=== PATIENT | female | born 1980 ===

== ENCOUNTER 2021-10-29 13:51 | Inpatient (IN) ==
[2021-10-29] MEDS ORDERED: SODIUM CHLORIDE 0.9% 250 ML IV PRN (15:41)
[2021-10-29] MEDS ORDERED: ceFAZolin 2000MG 2,000 MG/15 ML SYR IV SCH (16:00)
--- NOTE | 2021-10-29 16:03 | History & Physical Report ---
Date of Service October 29, 2021 Assessment & Plan (1) Previous delivery affecting , antepartum: (2) Dichorionic diamniotic twin : (3) Intrauterine growth restriction affecting antepartum care of mother in third trimester: Plan: 41 y/o at 36 2/7 wga w/ di-di TIUP complicated by severe FGR of baby A with elevated dopplers VSS NST reactive x 2 FGR baby A w/ elevated dopplers - Discussed case w/ [facility] as noted and they are recommending delivery. This was conveyed to the patient. They noted steroids should not delay delivery if by CS due to positioning so will defer dose as will be given right before delivery. Given positioning of baby A, plan is for repeat CS and BTL as pt had noted that she desires. Discussed risk of having to transfer one or both babies due to GA and pt aware, desires to proceed with delivery here. Will make anesthesia and peds team aware. Will consent pt when we determine timing of delivery and arrange appropriate resources. Ample time given for questions, answered to apparent satisafaction History of Present Illness Chief Complaint: 41 y/o at 36 2/7 wga w/ di-di TIUP w/ PIERRE 16 by first trimester US presents to labor and delivery for further monitoring of pregnancies after noting FGR <2% in baby A and elevated dopplers on growth US today. Twin A had previously been in growth restricted by became normal growth last month. Today baby A EFW <2% w/ AC <2% and UAD >97%, baby B EFW 61%, weight discordance 31.7%. Spoke to Dr. Courtney[facility]Shahla at [facility] who recommended to move towards delivery given severe growth restriction with elevated dopplers in twin . Baby A is confirmed transverse head maternal left so not a candidate for induction. They agree that betamethasone should not delay delivery at this point given GA. PNI: di-di TIUP w/ FGR twin A as above Hx PPROM Hx CSx1 w/ 3 successful VBACs, desired if able GBS+ urine AMA G1 2008 CS 39 wks for breech G2 2010 at 40 wks G3 2012 at 39 wks G4 2016 at 34 wks G5 current denies hx STIs 04/2021 neg cotest Primary Care Provider: NO PCP Allergies Allergy/AdvReac Type Severity Reaction Status Date / Time No Known Allergies Allergy Verified 10/29/21 13:22 Home Medications Medication Instructions Recorded Confirmed Type aspirin 81 mg chewable tablet 81 mg PO DAILY 09/01/21 10/29/21 History prenat.vits,reji,djd-uzoz-viuym 1 tab PO DAILY 09/01/21 10/29/21 History docusate sodium 100 mg capsule 100 mg PO DAILY 10/23/21 10/29/21 History (Colace) Patient History Medical History History of asthma Surgical History H/O elbow surgery Hx of section [place] teeth removed Family History Father Heart disease Hypertension Hypothyroid Clotting disorder Mother Hypertension Brother Hypertension Social History Smoking Status: Never smoker Second Hand Exposure: No; Hx Alcohol Use: No Hx Substance Use: No Preferred Language: Scottish Communication Ability: Effective Visual Impairment: Partially Limited Hearing Ability: Normal Lining Vamper Required: No Beliefs That Will Affect Care: None marital status: marital status details: Juan Daniel(40) [phone] Current Living Situation: Spouse Current Living Situation Comment: lives wtih spouse, children, no pets. current occupational status: unemployed Other Information That Helps Us Care for You: No Feels Safe at Home: Yes Safety Concerns: Feels Safe At This Time Childhood Exposure to Second-Hand Smoke: No caffeine: Yes (1-2 cups daily) during the past year weight has: increased > 10 lbs Dental Care, Regularly: Yes Seatbelt Use: always Sunscreen Use: Yes Do you think of yourself as: straight/heterosexual Sexual Activity: has been sexually active within the last 12 months Gender Identity: Female Assistive Devices: None Physical Exam Genitourinary: OB Exam Abdomen: + vertex (baby B) and + transverse (baby A) OB Exam Monitor Tracing: + external FHT monitor used, + external uterine monitor used (irritability) and + category I (A: 125-130/mod/+accel/-decel; B: 125/mod/+accel/-decel) Results & Data ([facility]) Vital Signs (Past 12 Hours) Vital Signs Temp Pulse Resp BP 10/29/21 15:08 97.9 F 20 10/29/21 14:11 72 116/69 Laboratory Results Initial OB Labs (05/15/21) Blood Type & RH A positive Antibody Screen negative HCT/HGB /12.2 Platelets 223 Hep C IgG 13yrs+ Old Pap Test negative (05/08/21) Chlamydia negative Gonorrhea negative Rubella immune RPR negative Urine Culture/Screen +Group B Step HBsAg negative HIV negative Diagnostic Findings BABY A - post plac efw= <2% ac= <2% UAD > 97% BABY B - ant plac efw= 61% weight discordance 31.7% BSUS confirms A transverse HML, B cephalic Coding Level of Care Code None Diagnoses Previous delivery affecting , antepartum O34.219 Dichorionic diamniotic twin O30.049 Intrauterine growth restriction affecting antepartum care of mother in third trimester O36.5942
[2021-10-29 16:04] LABS: Hematocrit (blood only) 34.8 % (37-47); Hemoglobin 11.3 g/dL (12.0-16.0); Mean Corpuscular Hemoglobin 32.6 pg (25-34); Mean Corpuscular Hgb Conc 32.5 g/dL (32-36); Mean Corpuscular Volume 100.3 fL (80-100); Mean Platelet Volume 9.8 fL (7.4-10.4); Platelet Count 197 K/uL (130-400); RDW Coefficient of Variation 16.3 % (11.5-14.5); RDW Standard Deviation 59.7 fL (36.4-46.3); Red Blood Count 3.47 M/uL (4.2-5.4); White Blood Count 3.96 K/uL (4.8-10.8)
--- NOTE | 2021-10-29 16:20 | Anesthesiology Consultation ---
Date of Service October 29, 2021 Assessment & Plan Chart Review Chart Review: Acceptable Risk for Surgery and Patient NOT seen in Pre Admission Testing Consults Requested none ASA ASA2 Proposed Anesthesia Anesthesia Type: Spinal Risk / Benefits Reviewed With: PT / POA / Parent / Guardian, Accepts Plan and Informed Consent Obtained Additional Notes will delay case until after 8 PM to meet NPO guidelines History Surgery Height/Weight Height: 5 ft 10 in Weight: 71.668 kg Allergies Allergy/AdvReac Type Severity Reaction Status Date / Time No Known Allergies Allergy Verified 10/29/21 13:22 Medications Home Medications Medication Instructions Recorded Confirmed Last Taken aspirin 81 mg chewable tablet 81 mg PO DAILY 09/01/21 10/29/21 10/29/21 prenat.vits,reji,bpg-hvyf-kflhd 1 tab PO DAILY 09/01/21 10/29/21 10/29/21 docusate sodium 100 mg capsule 100 mg PO DAILY 10/23/21 10/29/21 10/29/21 (Colace) NPO Date Last Intake of Fluids: 10/29/21 Time Last Intake of Fluids: 13:30 Date Last Intake of Solids: 10/29/21 Time Last Intake of Solids: 12:00 Past Medical History Medical History History of asthma Exercise / Class Metabolic Activity II 4-5 Yardwork/Stairs/Walk up hill Past Family History Family History Father Heart disease Hypertension Hypothyroid Clotting disorder Mother Hypertension Brother Hypertension Past Surgical History Surgical History H/O elbow surgery Hx of section [place] teeth removed Past Anesthesia History No Hx of Anesthesia Complications History of PONV History of PONV Social History Smoking Status: Never smoker Hx Alcohol Use: No Hx Substance Use: No substance use type: does not use Review of Systems Negative for chest pain or shortness of breath. Patient denies active symptoms of GERD. Patient denies history of abnormal bleeding or bleeding disorder. Patient denies active use of anticoagulants other than low dose aspirin. Patient denies numbness, tingling or weakness in lower extremities. Physical Exam Vital Signs Last Vital Signs Temp 36.6 C 10/29/21 15:08 Pulse 72 10/29/21 14:11 Resp 20 10/29/21 15:08 BP 116/69 10/29/21 14:11 Constitutional not obese (gravid) ENMT Mouth: no TMJ abnormality and oral opening not small Thyromental Distance: > or= 3.5 Finger Breadths Mallampati Class: II Neck normal visual inspection; neck extension not limited Respiratory normal respiratory effort Auscultation: lungs clear to auscultation bilaterally Cardiovascular Rate/Rhythm: regular rate and regular rhythm Heart Sounds: no murmur Neurologic moves all extremities Psychiatric Orientation: alert and oriented x 3 Testing Laboratory Results 10/29/21 15:56
--- NOTE | 2021-10-29 17:01 | Communication Note ---
Date of Service: October 29, 2021 - arrived. Spoke to anesthesia and they would like to wait until 8pm as babies look reassuring now and pt has hx being sick w/ anesthesia. -Discussed indications, risks, benefits, alternatives with risks including infection, bleeding, injury to adjacent structures (bowel, bladder, ureters, blood vessels, nerves, baby), possible need for blood transfusion and/or life saving hysterectomy, VTE. Pt desires tubal. Discussed risk associated w/ tubal including risk of regret, inability to complete procedure. Consent reviewed in detail w/ pt and signed after all questions answered to her satisfaction for repeat CS and BTL.
[2021-10-29] MEDS ORDERED: CITRIC ACID/SODIUM CITRATE 15 ML UDC PO SCH (19:00)
[2021-10-29] MEDS ORDERED: CITRIC ACID/SODIUM CITRATE 15 ML UDC ONE (19:04)
--- NOTE | 2021-10-29 20:19 | Communication Note ---
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 Briefly, mother with Di-Di twin gestation presenting from clinic due to concern of elevated dopplers in Baby A. Baby A has been IUGR since 28 weeks gestation; most recently measured below 3%. Mom reports she has otherwise been healthy during , only taking a baby aspirin. No other abnormalities on ultrasounds. Baby B reportedly has normal growth. OB has consulted with MFM, who has recommended proceeding with CSection delivery. Parents asking about potential delivery outcomes. I reviewed that babies born at late status have higher risk of needing resuscitation at and higher risk of RDS. It is my opinion that Baby A is a little bit more at risk for these complications due to the poor growth and abnormal dopplers. Reviewed resuscitation measures and respiratory support measures (Family familiar with CPAP due to having a son born at 34 weeks gestation). Reviewed that if higher level of respiratory support is needed, that (s) will need to be transferred to a Level 3 NICU; parents prefer to be transferred to [facility] if that need arises. Total time spent with family before delivery was 30 minutes.
--- NOTE | 2021-10-29 20:20 | Billing Data ---
Date of Service October 29, 2021 Coding Level of Care Code 50229 Inpt Consult Level 1
[2021-10-29] MEDS ORDERED: OXYTOCIN 10 UNITS/ML 10ML VIAL ONE ×2 (20:27→20:36)
[2021-10-29] MEDS ORDERED: MoRPHine SULFATE PF 1 MG/ML 10 ML AMP/VIAL ONE (20:27)
[2021-10-29] MEDS ORDERED: fentaNYL citrate 100 MCG/2 ML VIAL ONE (20:27)
[2021-10-29] MEDS ORDERED: ONDANSETRON INJ 2 MG/ML 2 ML VIAL ONE (20:27)
[2021-10-29] MEDS ORDERED: SODIUM CHLORIDE 0.9% INJ 10 ML VIAL ONE (20:36)
[2021-10-29] MEDS ORDERED: KETOROLAC 30 MG/ML VIAL ONE (21:35)
[2021-10-29] MEDS ORDERED: ePHEDrine sulfate 50 MG/ML SYR ONE (22:02)
[2021-10-29] MEDS ORDERED: DIPHTHERIA/TETANUS/PERTUSSIS 0.5 ML SYR/VIAL IM ONE (22:20)
[2021-10-29] MEDS ORDERED: HYDROCORTISONE ACETATE 25 MG SUPP PR PRN (22:20)
[2021-10-29] MEDS ORDERED: MAGNESIUM HYDROXIDE SUSP 30 ML UDC PO PRN (22:20)
[2021-10-29] MEDS ORDERED: LACTATED RINGER'S 1,000 ML IV SCH (22:20)
[2021-10-29] MEDS ORDERED: KETOROLAC 30 MG/ML VIAL IV PRN ×2 (22:20→23:22)
[2021-10-29] MEDS ORDERED: BENZOCAINE 20% AER SPR 82.5 GM CAN EXT PRN (22:20)
[2021-10-29] MEDS ORDERED: SENNA 8.6 MG TAB PO PRN (22:20)
[2021-10-29] MEDS ORDERED: OXYTOCIN 20 UNITS in LACTATED RINGER'S 1,000 ML IV SCH (22:20)
--- NOTE | 2021-10-29 22:25 | Operative Report ---
PG Post Operative Report Pre & Post Diagnosis Operation Date: 10/29/21 20:30 Pre-Op Diagnosis: DI/DI IUP at 36 weeks and 2 days Severe growth restriction of Baby A with elevated dopplers Previous C/S x 1 Desires permanent sterilization AMA Post-Op Diagnosis: 1. Same Operation Date: 10/29/21 21:00 Pre-Op Diagnosis: DI/DI IUP at 36 weeks and 2 days Severe growth restriction of Baby A with elevated dopplers Previous C/S x 1 Desires permanent sterilization AMA Post-Op Diagnosis: 1. Same 2. Delivery of live female child at 2109 "A" 3. Delivery of live female child at 2110 "B" I identified the patient and participated in the time-out.: Yes Procedure Operation Date: 10/29/21 20:30 Actual Procedures p Repeat Low Transverse Section with Bilateral Tubal Ligation in LD - Suellen Valenzuela MD Operation Date: 10/29/21 21:00 <No data on this case meets the specified criteria> Surgeon Suellen Valenzuela MD Public Service Administrator Lyle Estimated Blood Loss 750 Findings Consistent with Post-Op Diagnosis Normal appearing uterus, bilateral fallopian tubes and ovaries. Baby A is a viable female with APGARs of 8 and 9, weight pending. Baby B is a viable female infant with APGARs of 8 and 9, weight pending Fluids 1300cc crystalloid, 100cc clear urine by aiken cath Specimens Cord blood for baby A and baby B, placenta, right and left fallopian tubes Drains Aiken draining clear urine Anesthesia Type Spinal Complications none Disposition Accompanied Patient To Recovery: Yes Disposition: L&D Indications 41 y/o at 36 2/7 wga w/ di-di TIUP w/ PIERRE 16 by first trimester US presented to labor and delivery for further monitoring of pregnancies after noting FGR <2% in baby A with elevated dopplers on growth US today. Twin A had previously been growth restricted but became normal growth last month. Today baby A EFW <2% w/ AC <2% and UAD >97%, baby B EFW 61%, weight discordance 31.7%. Case was discussed with maternal medicine at [place] who recomme nded proceeding with delivery given gestational age. The patient had desired however baby A was noted to be transverse and so was not a candidate for induction. She does desire permanent sterilization Description of Procedure The patient was taken to the operating room after consents were ensured. The patient was properly identified. Spinal anesthesia was obtained without difficulty. The patient was placed in a dorsal supine position with left lateral tilt, then prepped and draped in normal sterile fashion. Surgical time out was performed. Antibiotics were given for prophylaxis. Anesthesia was tested to ensure adequate surgical levels. Pfannenstiel skin incision was performed and carried down to the underlying fascia with a knife. The fascia was then nicked in the midline and extended laterally with pickcydney and Duke scissors. Superior portion of the fascia was grasped with Kochers x2 and elevated off the underlying rectus muscles using blunt dissection. Inferior portion of the fascia was then grasped with Felipe clamps x2 and also elevated off the underlying muscles with blunt dissection. Midline was identified. The peritoneum was then entered and extended to provide adequate room for delivery of baby. A hand was inserted into the abdomen, uterus was noted to be clear of adhesions. Bladder blade was inserted, bladder flap was created in the usual fashion. A low transverse uterine incision was made in the uterus and extended bluntly in a superior to inferior fashion. Amniotomy for baby A was made with clear fluid at the time of rupture. breech was grasped and elevated to the hysterotomy atraumatically and delivered to the level of the scapula after hips delivered spontaneously. Arms were swept across the chest atraumatically and head delivered spontaneously afterward. Nose and mouth were bulb suctioned on the surgical field. The cord was double clamped and cut, baby was handed off to awaiting pediatrics staff. Cord segment and blood were obtained and remaining cord was delineated with a single umbilical clamp. Amniotomy for baby B sac was then made and head was grasped and elevated through the hysterotomy in an atraumatic fashion. The baby delivered in CHELSEA position, no nuchal cord. Remainder of the body delivered without incident. Nose and mouth were bulb suctioned on the surgical field. The cord was double clamped and cut, baby was handed off to awaiting pediatrics staff. Cord segment and blood were obtained and remainder of cord was delineated with double umbilical clamps. Placenta was then expressed from the uterus. The uterus was exteriorized. Several passes were made inside the uterus to remove the remaining membranes. Attention was then turned to the hysterotomy, which was then closed with a running locked suture of 0 Vicryl on a CTX needle. An imbricating layer was then performed using 0-Monocryl. There was noted to be good hemostasis. Attention was then turned to the permanent sterilization portion of the procedure. The right fallopian tube was grasped and followed out to the fimbriated end. A window was created in the mesosalpinx and a portion of the right fallopian tube was excised using the modified kiera method. This portion was then handed off for pathology. Tubal site was excellently hemostatic. The same procedure was performed on the contralateral side and again tubal site was excellently hemostatic. Hysterotomy was again hemostatic. The posterior cul-de-sac was then inspected and cleaned of clot and debris. The hysterotomy and tubal sites were again inspected and noted to be hemostatic. The uterus was returned to the abdomen. The right and left pericolic gutters were cleaned of all clot and debris. The hysterotomy was again noted to be hemostatic. Tubal sites were again hemostatic. Space of Retzius was noted to be hemostatic. The fascia was then closed with a running suture of 0 Vicryl on a CT1 needle. Subcutaneous tissue was copiously irrigated and noted to be hemostatic. Subcutaneous tissue was re-approximated using 2-0 plain gut. The skin was then closed with a running suture of 3-0 Monocryl in a subcuticular fashion. At termination of the procedure, the fundal pressure was applied and a moderate amount of lochia was expressed. Pressure dressing was applied to the patient. She tolerated the procedure well. All sponge, needle, instrument counts were correct x 2. I attest to the content of the Intraoperative Record and any orders documented therein. Any exceptions are noted below. OB Procedure Charges [id number] Add on Tubal for C/S
[2021-10-29] MEDS ORDERED: LACTATED RINGER'S 500 ML IV PRN (23:22)
[2021-10-29] MEDS ORDERED: NALBUPHINE HCL INJ 10 MG/ML AMP IV PRN (23:22)
[2021-10-29] MEDS ORDERED: HYDROmorphone INJ 0.5 MG/0.5 ML SYR IV PRN (23:22)
[2021-10-29] MEDS ORDERED: diphenhydrAMINE 50 MG/ML VIAL IV PRN (23:22)
[2021-10-29] MEDS ORDERED: NALOXONE HCL 1 MG in SODIUM CHLORIDE 0.9% 1000ML 1,000 ML IV PRN (23:22)
[2021-10-29] MEDS ORDERED: ePHEDrine sulfate 50 MG/ML AMP IV PRN (23:22)
[2021-10-29] MEDS ORDERED: ONDANSETRON INJ 2 MG/ML 2 ML VIAL IV PRN (23:22)
[2021-10-29] MEDS ORDERED: MoRPHine SULFATE PF 1 MG/ML 10 ML AMP/VIAL INT SPINAL ONE (23:22)
[2021-10-29] MEDS ORDERED: ACETAMINOPHEN 1000 MG/100 ML IV IV PRN (23:22)
[2021-10-29] MEDS ORDERED: PROMETHAZINE HCL 25 MG in SODIUM CHLORIDE 0.9% 50 ML IV PRN (23:22)
[2021-10-29] MEDS ORDERED: NALOXONE HCL 0.08 MG in SYRINGE 1.8 ML IV PRN (23:22)
[2021-10-29] MEDS ORDERED: NALOXONE HCL 0.4 MG/1 ML VIAL/CARP IV PRN (23:22)
[2021-10-29] MEDS ORDERED: SODIUM CHLORIDE 0.9% 1000ML 1,000 ML IV SCH (23:30)
[2021-10-29] MEDS ORDERED: NO NARCOTICS OR SEDATIVES SCH (23:30)
[2021-10-29] MEDS ORDERED: DC INTRASPINAL MORPHINE SCH (23:30)
[2021-10-30] MEDS ORDERED: CITRIC ACID/SODIUM CITRATE 15 ML UDC PO SCH (06:00)
--- NOTE | 2021-10-30 06:03 | Obstetrical Progress Note ---
Date of Service <Sarai BenavidesDO - Last Filed: 10/30/21 07:11> October 30, 2021 Assessment & Plan <Sarai BenavidesDO - Last Filed: 10/30/21 07:11> (1) Encounter for care and examination after delivery: (2) Dichorionic diamniotic twin : (3) Supervision of elderly multigravida: 41 yo post op day1 from c/s with twin as elderly multigravida with IUGR, doing well. -Continue routine post care. -vital signs reviewed and WNL (Tmax 36.8) -Blood Type A+, GB+-, Rubella immune -Encourage ambulation, monitor and control pain with Motrin, tylenol PRN, resume regular diet, monitor lochia -encourage breast feeding -hemoglobin 11.3 Day #:: 1 <Suellen Valenzuela MD - Last Filed: 10/30/21 07:55> (1) Encounter for care and examination after delivery: (2) Dichorionic diamniotic twin : (3) Supervision of elderly multigravida: Subjective <Sarai BenavidesDO - Last Filed: 10/30/21 07:11> Ambulation: limited ambulation Voiding: aiken catheter in place Passing Gas:: No Diet Tolerance:: regular diet Lochia:: Moderate Feeding Type:: breast feeding Current Pain Level(1-10): 0 Review of Systems Denies fever, chills, sweats Denies shortness of breath, difficulty breathing, chest pain, palpitations, chest pressure. Denies breast pain. Denies dysuria. Denies headache or changes in vision. Physical Exam <Sarai KennedyDO - Last Filed: 10/30/21 07:11> General: Alert, oriented. No acute distress. Cardiac: Regular rate and rhythm, no murmurs/rubs/gallops. Respiratory: Clear to auscultation bilaterally a/p, no wheezes/rales/rhonchi. No increased work of breathing. Symmetrical chest rise. No respiratory distress. Abdomen: Soft, nontender, nondistended. Bowel sounds present. Uterus: Uterine fundus firm, palpable 1 cm below umbilicus. Surgical scar clean and healing well. Lower Extremities: No lower extremity edema or swelling. No deep calf pain. Larry's negative bilaterally. Results & Data ([facility]) <Sarai Benavides, DO - Last Filed: 10/30/21 07:11> Vital Signs (Past 12 Hours) Vital Signs Temp Pulse Pulse Resp BP BP Pulse Ox 10/30/21 05:00 20 97 10/30/21 04:10 18 97 10/30/21 03:55 36.4 C L 60 18 121/72 95 10/30/21 03:45 18 95 10/30/21 02:45 16 94 10/30/21 01:30 36.4 C L 54 L 20 108/63 97 10/30/21 00:30 36.4 C L 70 20 112/63 98 10/30/21 00:09 71 122/84 10/30/21 00:08 67 98 10/30/21 00:03 66 98 10/29/21 23:59 66 121/71 10/29/21 23:58 57 L 98 10/29/21 23:53 50 L 97 10/29/21 23:49 70 129/73 10/29/21 23:48 56 L 99 10/29/21 23:43 72 99 10/29/21 23:39 70 118/75 93 10/29/21 23:38 68 98 10/29/21 23:33 64 100 10/29/21 23:29 63 16 116/70 10/29/21 23:28 66 100 10/29/21 23:23 70 98 10/29/21 23:19 83 120/77 10/29/21 23:18 73 98 10/29/21 23:13 74 99 10/29/21 23:09 68 18 107/78 10/29/21 23:08 71 98 10/29/21 23:03 71 99 10/29/21 22:59 71 14 112/58 L 10/29/21 22:58 77 98 10/29/21 22:53 71 99 10/29/21 22:49 69 20 120/71 10/29/21 22:48 67 96 10/29/21 22:43 68 96 10/29/21 22:39 65 16 120/74 10/29/21 22:38 67 97 10/29/21 22:33 75 98 10/29/21 22:29 69 14 120/73 10/29/21 22:28 75 98 04/20/22 22:23 72 100 10/29/21 22:19 72 14 115/66 10/29/21 22:18 70 98 10/29/21 22:13 70 98 10/29/21 22:09 36.4 C L 68 16 109/59 L 10/29/21 22:08 78 97 10/29/21 19:02 68 122/61 10/29/21 19:00 36.8 C 18 <Suellen Valenzuela MD - Last Filed: 10/30/21 07:55> Co-Signing Physician Notes Resident Physician Supervision Note: I interviewed and examined the patient. Discussed with Dr. Benavides and agree with findings and plan as documented in the note. Any exceptions or clarifications are listed here: POD1 s/p rLTCS/BTL, doing well. VSS, exam benign, dressing c/d/i. Continue routine pp care, for aiken removal and ambulation, dressing removed today Documented By: Suellen Valenzuela MD Resident Activity Tracking <Sarai Benavides DO - Last Filed: 10/30/21 07:11> Resident Involvement: Resident Care Provided Care Provided: Adult Hospital Medicine and OB Delivery
[2021-10-30] MEDS ORDERED: LACTATED RINGER'S 500 ML IV ONE (06:13)
[2021-10-30 07:47] LABS: Basophils # (auto) 0.01 K/uL (0-0.2); Basophils % (auto) 0.1 %; Eosinophils # (auto) 0.07 K/uL (0-0.5); Hematocrit (blood only) 31.6 % (37-47); Hemoglobin 10.4 g/dL (12.0-16.0); Immature Granulocytes # (auto) 0.02 K/uL (0.00-0.02); Immature Granulocytes % (auto) 0.3 %; Lymphocytes # (auto) 0.94 K/uL (1.2-3.4); Lymphocytes % (auto) 13.9 %; Mean Corpuscular Hemoglobin 32.7 pg (25-34); Mean Corpuscular Hgb Conc 32.9 g/dL (32-36); Mean Corpuscular Volume 99.4 fL (80-100); Mean Platelet Volume 10.2 fL (7.4-10.4); Monocytes # (auto) 0.51 K/uL (0.11-0.59); Monocytes % (auto) 7.5 %; Neutrophils # (auto) 5.23 K/uL (1.4-6.5); Neutrophils % (auto) 77.2 %; Platelet Count 157 K/uL (130-400); RDW Coefficient of Variation 16.4 % (11.5-14.5); Red Blood Count 3.18 M/uL (4.2-5.4); White Blood Count 6.78 K/uL (4.8-10.8)
[2021-10-30] MEDS: DOCUSATE SODIUM 100 MG CAP PO SCH ×2 (08:35→21:17)
[2021-10-30] MEDS: FERROUS SULFATE 325 MG TAB PO SCH (08:36)
[2021-10-30] MEDS: PRENATAL VITAMIN 1 TAB PO SCH (08:36)
[2021-10-30] MEDS: SIMETHICONE 80 MG CHEW PO SCH ×4 (08:36→21:17)
[2021-10-30] MEDS ORDERED: PROMETHAZINE HCL 25 MG in SODIUM CHLORIDE 0.9% 50 ML IV PRN (17:23)
[2021-10-30] MEDS ORDERED: diphenhydrAMINE Capsule 25 MG CAP PO PRN (17:23)
[2021-10-30] MEDS ORDERED: ONDANSETRON INJ 2 MG/ML 2 ML VIAL IV PRN (17:23)
[2021-10-30] MEDS ORDERED: diphenhydrAMINE 50 MG/ML VIAL IV PRN (17:23)
[2021-10-30] MEDS: IBUPROFEN 600 MG TAB PO PRN ×2 (17:51→21:18)
[2021-10-30] MEDS ORDERED: bisacodyL 5 MG TABEC PO SCH (20:00)
[2021-10-30] MEDS: oxyCODONE/ACETAMINOPHEN 5mg/325mg TAB PO PRN (22:14)
[2021-10-31] MEDS ORDERED: bisacodyL 10 MG SUPP PR PRN
[2021-10-31] MEDS: IBUPROFEN 600 MG TAB PO PRN ×5 (01:38→22:08)
--- NOTE | 2021-10-31 07:36 | Obstetrical Progress Note ---
Date of Service October 31, 2021 Assessment & Plan (1) Encounter for care and examination after delivery: 41 yo post op day2 from c/s with twin as elderly multigravida with IUGR, doing well. -Continue routine post care. -vital signs reviewed and WNL (Tmax 36.8) -Blood Type A+, GB+-, Rubella immune -Encourage ambulation, monitor and control pain with Motrin, tylenol PRN, resume regular diet, monitor lochia -encourage breast feeding -hemoglobin 11.3 Note patient had twins will stay today as still recovering from and the 1 growth restricted baby still needs care we discussed the role of nesting if needed Her incision is clean dry and intact Results & Data ([facility]) Vital Signs (Past 12 Hours) Vital Signs Temp Pulse Resp BP Pulse Ox 10/30/21 20:13 98.1 F 67 14 108/72 98
[2021-10-31 08:11] LABS: Hematocrit (blood only) 32.3 % (37-47); Hemoglobin 10.7 g/dL (12.0-16.0)
[2021-10-31] MEDS: PRENATAL VITAMIN 1 TAB PO SCH (08:37)
[2021-10-31] MEDS: DOCUSATE SODIUM 100 MG CAP PO SCH ×2 (08:37→20:52)
[2021-10-31] MEDS: FERROUS SULFATE 325 MG TAB PO SCH (08:38)
[2021-10-31] MEDS: SIMETHICONE 80 MG CHEW PO SCH ×4 (08:38→20:52)
[2021-10-31] MEDS ORDERED: ACETAMINOPHEN 325 MG TAB PO PRN (17:23)
[2021-10-31] MEDS: oxyCODONE/ACETAMINOPHEN 5mg/325mg TAB PO PRN (22:08)
[2021-11-01] MEDS: IBUPROFEN 600 MG TAB PO PRN ×4 (06:04→20:44)
--- NOTE | 2021-11-01 06:37 | Obstetrical Progress Note ---
Date of Service <Sarai Benavides DO - Last Filed: 11/01/21 07:50> November 01, 2021 Assessment & Plan <Sarai Benavides DO - Last Filed: 11/01/21 07:50> (1) Encounter for care and examination after delivery: (2) Dichorionic diamniotic twin : (3) Supervision of elderly multigravida: 41 yo post op day3 from c/s with twin as elderly multigravida with IUGR, doing well. -Continue routine post care. -vital signs reviewed and WNL (Tmax 37.2) -Blood Type A+, GB+-, Rubella immune -Encourage ambulation, monitor and control pain with Motrin, tylenol PRN, resume regular diet, monitor lochia -encourage breast feeding -hemoglobin 10.7 -twin A still requires longer care, patient plans on nesting to stay with baby Day #:: 3 <Trixie Worrell MD, FACOG - Last Filed: 11/01/21 11:17> (1) Encounter for care and examination after delivery: (2) Dichorionic diamniotic twin : (3) Supervision of elderly multigravida: Subjective <Sarai Benavides DO - Last Filed: 11/01/21 07:50> Ambulation: ambulating normally Voiding: no voiding problems Passing Gas:: Yes Diet Tolerance:: regular diet Lochia:: Small Feeding Type:: breast feeding Current Pain Level(1-10): 0 Review of Systems Denies fever, chills, sweats Denies shortness of breath, difficulty breathing, chest pain, palpitations, chest pressure. Denies breast pain. Denies dysuria. Denies headache or changes in vision. Physical Exam <Sarai Benavides DO - Last Filed: 11/01/21 07:50> General: Alert, oriented. No acute distress. Cardiac: Regular rate and rhythm, no murmurs/rubs/gallops. Respiratory: Clear to auscultation bilaterally a/p, no wheezes/rales/rhonchi. No increased work of breathing. Symmetrical chest rise. No respiratory distress. Abdomen: Soft, nontender, nondistended. Bowel sounds present. Uterus: Uterine fundus firm, palpable 1 cm below umbilicus. Surgical scar clean and healing well. Lower Extremities: No lower extremity edema or swelling. No deep calf pain. Larry's negative bilaterally. Results & Data ([facility]) <Sarai Benavides DO - Last Filed: 11/01/21 07:50> Vital Signs (Past 12 Hours) Vital Signs Temp Pulse Resp BP Pulse Ox 11/01/21 00:35 36.8 C 78 16 122/73 97 10/31/21 20:45 36.7 C 69 20 127/77 100 <Trixie Worrell MD, FACOG - Last Filed: 11/01/21 11:17> Co-Signing Physician Notes Resident Physician Supervision Note: I interviewed and examined the patient. Discussed with Dr. Benavides and agree with findings and plan as documented in the note. Any exceptions or clarifications are listed here: [None] Documented By: Trixie Worrell MD, FACOG Resident Activity Tracking <Sarai Benavides DO - Last Filed: 11/01/21 07:50> Resident Involvement: Resident Care Provided Care Provided: Adult Hospital Medicine and OB Delivery
[2021-11-01] MEDS: DOCUSATE SODIUM 100 MG CAP PO SCH ×2 (09:02→20:44)
[2021-11-01] MEDS: SIMETHICONE 80 MG CHEW PO SCH ×4 (09:02→20:44)
[2021-11-01] MEDS: PRENATAL VITAMIN 1 TAB PO SCH (09:02)
[2021-11-01] MEDS: FERROUS SULFATE 325 MG TAB PO SCH (09:02)
[2021-11-01 23:45] VITALS: TEMP 98.1
[2021-11-02] MEDS: IBUPROFEN 600 MG TAB PO PRN ×3 (02:12→17:01)
[2021-11-02] MEDS: DOCUSATE SODIUM 100 MG CAP PO SCH ×2 (09:27→17:01)
[2021-11-02] MEDS: PRENATAL VITAMIN 1 TAB PO SCH (09:27)
[2021-11-02] MEDS: FERROUS SULFATE 325 MG TAB PO SCH (09:27)
[2021-11-02] MEDS: SIMETHICONE 80 MG CHEW PO SCH ×3 (09:27→17:49)
[2021-11-02 10:49] VITALS: BP 126/76; PULSE 65; O2SAT 99
--- NOTE | 2021-11-04 11:46 | Discharge Summary ---
Date of Service November 04, 2021 Admission HPI Per Admitting Provider 41 y/o at 36 2/7 wga w/ di-di TIUP w/ PIERRE 5/16 by first trimester US presented to labor and delivery for further monitoring of pregnancies after noting FGR <2% in baby A with elevated dopplers on growth US today. Twin A had previously been growth restricted but became normal growth last month. Today baby A EFW <2% w/ AC <2% and UAD >97%, baby B EFW 61%, weight discordance 31.7%. Case was discussed with maternal medicine at [facility] who recommended proceeding with delivery given gestational age. The patient had desired however baby A was noted to be transverse and so was not a candidate for induction. She does desire permanent sterilization Admission Exam (Per Admitting) Genitourinary OB Exam Abdomen: + vertex (baby B) and + transverse (baby A) OB Exam Monitor Tracing: + external FHT monitor used, + external uterine monitor used (irritability) and + category I (A: 125-130/mod/+accel/-decel; B: 125/mod/+accel/-decel) Discharge Data Consultations 10/29/21 15:42 Consult Anesthesiology Stat Procedures Performed Operation Date: 10/29/21 20:30 Actual Procedures p Section in TRELL Valenzuela MD Operation Date: 10/29/21 21:00 Actual Procedures p Section in TRELL Valenzuela MD Hospital Course (1) Dichorionic diamniotic twin : (2) Intrauterine growth restriction affecting antepartum care of mother in third trimester: (3) Previous delivery affecting , antepartum: see operative report for details. Postop course was uncomplicated and she was discharged on POD3 Coding Level of Care Code None Diagnoses Dichorionic diamniotic twin O30.049 Intrauterine growth restriction affecting antepartum care of mother in third trimester O36.5930 Previous delivery affecting , antepartum O34.219
== END 2021-11-02 18:15 | disposition home or self-care (01) | DRG 785 ==
LOC: OPB 13:51 → 4S1 13:52 → 4E2 10-30 00:10 → 4S3 11-01 19:52 → 4E2 11-02 12:56